=== PATIENT | female | born 1995 | race Caucasian/White ===

== ENCOUNTER → 2018-11-28 11:45 | Outpatient (CLI) | payer BC ==
[2016-02-14 05:58] VITALS: BMI 29.8
[~2018-11-28 11:45] MED LIST: IBUPROFEN600 MG PO; PERCOCET 5-3251 TAB PO; PRENAVITE1 TAB PO
[2018-11-28 12:38] LABS: APPEARANCE SL CLDY (CLEAR); BILIRUBIN NEGATIVE (NEGATIVE); COLOR YELLOW (YELLOW); GLUCOSE 100 mg/dL (NEGATIVE); KETONE NEGATIVE (NEGATIVE); NITRITE NEGATIVE (NEGATIVE); PROTEIN NEGATIVE (NEGATIVE); UROBILINOGEN NORMAL (NORMAL)
[2018-11-28 12:39] LABS: BACTERIA MODERATE /hpf (NONE SEEN); EPITHELIAL CELLS 0-5 /hpf (0-5); MUCUS <1+ /lpf (NONE SEEN); WHITE CELLS - URINE 0-5 /hpf (0-5)
== END | disposition home or self-care (01) ==
LOC: D.LDO 11:45
PROVIDERS: ATTEND Obstetrics & Gynecology
DX: O36.8930 Maternal care for other specified fetal problems, third trimester, not applicable or unspecified (principal); Z3A.30 30 weeks gestation of pregnancy

== ENCOUNTER 2019-01-20 20:15 | Inpatient (IN) | payer BC ==
[~2019-01-20] VITALS: Ht 157.5 cm; Wt 74.5 kg
[2019-01-20 21:46] VITALS: BP 121/82; Ht 157.5 cm; Wt 74.5 kg
[2019-01-20 22:19] LABS: HEMATOCRIT 26.8 % (36.0-48.0); HEMOGLOBIN 8.8 g/dL (12-16); MCH 27.1 pg (26.0-34.0); MCHC 32.8 g/dL (31.0-37.0); MCV 82.5 fL (80.0-100.0); MEAN PLATELET VOLUME 11.1 fL (7.4-10.4); RBC 3.25 10x6/uL (4.00-5.40); RDW 13.7 % (11.5-14.5); WBC 9.7 10x3/uL (4.8-10.8)
[2019-01-20 22:26] LABS: UDS - AMPHET NEGATIVE QUAL (NEGATIVE); UDS - BARB NEGATIVE QUAL (NEGATIVE); UDS - BENZO NEGATIVE QUAL (NEGATIVE); UDS - COCAINE NEGATIVE QUAL (NEGATIVE); UDS - OPIATE NEGATIVE QUAL (NEGATIVE); UDS - PCP NEGATIVE QUAL (NEGATIVE); UDS - THC NEGATIVE QUAL (NEGATIVE)
[2019-01-21 19:20] VITALS: BP 119/75
--- NOTE | 2019-01-21 19:20 | NUR ---
PT REC'D IN BED AT THIS TIME. DENIES PAIN. PITOCIN INFUSING TO THE RT FOREARM. SITE CLEAR AND PATENT. LUNGS CLEAR. BS+. FUNDUS FIRM AND U\2 WITH SMALL BLEEDINE NOTED AT THIS TIME. PT STILL WITH SOME NUMBNESS TO THE RT LEG. WILL MONITOR. ERIDURAL LINE REMOVED WITH TIP INTACT. VSS. NO ACUTE DISTRESS NOTED AT THIS TIME. SIDERAIL UP FOR SAFETY. CALL LIGHT IN PT REACH. Joyce DUNCAN RN
--- NOTE | 2019-01-21 20:00 | NUR ---
PITOCIN COMPLETED. IRON INFUSION UP AT THIS TIME AT 135 ML/HR TO THE RT FOREARM. Joyce DUNCAN RN
--- NOTE | 2019-01-21 21:00 | NUR ---
PT UP TO VOID AT THIS TIME. WITH FAMILY ASSIST. PT ABLE TO BEAR WEIGHT AT THIS TIME. PT VOIDED WITHOUT DIFFICULTY. PERICARE PROVIDED. PT TO WHEELCHAIR AND TO ROOM 1257. Joyce DUNCAN RN
--- NOTE | 2019-01-21 21:43 | NUR ---
pt medicated for pain of 6 with toradol at this time. will continue to monitor. jhoana norman rn
--- NOTE | 2019-01-21 22:15 | NUR ---
PT STATES PAIN IS A 2 AT THIS TIME. WILL CONTINUE TO MONITOR. Joyce DUNCAN RN
--- NOTE | 2019-01-21 23:00 | NUR ---
IRON INFUSION COMPLETED AT THIS TIME. SALINE LOCK FLUSHED. SITE PATENT. Joyce DUNCAN RN
[2019-01-22 00:15] VITALS: BP 119/71
[2019-01-22 01:16] LABS: BASOPHILS 0 % (0-2); EOSINOPHILS 0.2 % (0-7); HEMOGLOBIN 10.5 g/dL (12-16); IMMATURE GRANULOCYTES 0.3 % (0-5); LYMPHOCYTES 9.1 % (15-50); MCH 26.6 pg (26.0-34.0); MCHC 32.4 g/dL (31.0-37.0); MEAN PLATELET VOLUME 11.3 fL (7.4-10.4); NEUTROPHILS 85.4 % (40-80); RDW 13.9 % (11.5-14.5); WBC 11.5 10x3/uL (4.8-10.8)
[2019-01-22 01:17] LABS: HEMATOCRIT 32.4 % (36.0-48.0); PLATELET COUNT 145 10x3/uL (130-400); RBC 3.95 10x6/uL (4.00-5.40)
--- NOTE | 2019-01-22 02:45 | NUR ---
PT MEDICATED FOR PAIN OF 6 WITH TYLENOL 1000 MG PO. WILL CONTINUE TO MONITOR PAIN. Joyce DUNCAN RN
--- NOTE | 2019-01-22 03:45 | NUR ---
PT STATES PAIN IS A 3 AT THIS TIME. AWAKE AND ALERT AT THIS TIME. NO DISTRESS NOTED. Joyce DUNCAN RN
--- NOTE | 2019-01-22 05:55 | NUR ---
PT REC'D IN BED WATCHING TV. DENIES PAIN OR NEEDS AT THIS TIME. Joyce DUNCAN RN
[2019-01-22 07:12] LABS: RAPID PLASMA REAGIN Non Reactive (Non Reactive)
[2019-01-22 08:30] VITALS: BP 114/74
--- NOTE | 2019-01-22 08:30 | NUR ---
THIS RN TO ROOM FOR SHIFT ASSESSMENT. PT SITTING UP IN BED. PT C/O MILD PAIN, RATES 2/10 AT THIS TIME, UTERINE CRAMPING FOLLOWING . PT DENIES CONCERNS WITH HEAVY BLEEDING. PT INSTRUCTED ON S/S TO REPORT REGARDING LOCHIA FLOW/CLOTS. UNDERSTANDING VERBALIZED. SHIFT ASSESSMENT DONE, VSS, SEE FLOWSHEET FOR DOC. POC DISCUSSED INCLUDING POSSIBLE DISCHARGE TO HOME THIS EVENING. PT AGREES SHE WOULD LIKE TO GO HOME TODAY IF POSSIBLE. AM LABS REVIEWED. PT RIGHT FOREARM PIV REMOVED WITHOUT INCIDENT NO LONGER INDICATED. CATH INTACT. PRESSURE HELD AND BANDAID APPLIED. PT DENIES ANY NEEDS AT THIS TIME. SRUx2, CL IN REACH. WILL CONT TO MONITOR. SIG OTHER AT BEDSIDE.
--- NOTE | 2019-01-22 09:30 | NUR ---
THIS RN TO ROOM FOR PT CHECK. PT SITTING UP IN BED, INFANT. PT DENIES ANY NEEDS AT THIS TIME. SIG OTHER AT BEDSIDE. SRUx2, CL IN REACH. WILL CONT TO MONITOR.
[2019-01-22] MEDS ORDERED: TORADOL10 MG PO (10:11)
--- NOTE | 2019-01-22 10:51 | NUR ---
THIS RN TO ROOM FOR PT CHECK. PT SITTING UP IN BED, VISITING WITH VISITORS. PT SMILING, DENIES ANY NEEDS AT THIS TIME. INSTRUCTED TO CALL FOR ANY NEEDS. JACLYN Padgett IN REACH. WILL CONT TO MONITOR.
--- NOTE | 2019-01-22 11:55 | NUR ---
THIS RN TO ROOM FOR PT CHECK. PT SITTING UP IN BED, VISITING WITH FAMILY. PT C/O CRAMPING PAIN RATED 6/10, REQUESTING PAIN MEDICATION. WILL ADMIN PRN TORADOL ORDERED FOR PAIN.
--- NOTE | 2019-01-22 12:05 | NUR ---
PT ADMIN TORADOL ORDERED, SEE EMAR FOR DOC. FRESH ICE WATER PROVIDED. PT DENIES FURTHER NEEDS AT THIS TIME. SRUx2, CL IN REACH.
--- NOTE | 2019-01-22 13:06 | NUR ---
THIS RN TO ROOM FOR PT CHECK AND PAIN REASSESSMENT. PT SITTING UP IN BED, . PT REPORTS VERBALIZES RELIEF FROM PAIN, DENIES ANY NEEDS AT THIS TIME. FAMILY MEMBER AT BEDSIDE. SRUx2, CL IN REACH. WILL CONT TO MONITOR.
--- NOTE | 2019-01-22 16:45 | NUR ---
THIS RN TO ROOM FOR PT CHECK. PT SITTING UP IN BED, EATING DINNER AND VISITING WITH FAMILY. PT DENIES PAIN OR ANY NEEDS. SRUx2, CL IN REACH. WILL CONT TO MONITOR.
--- NOTE | 2019-01-22 17:50 | NUR ---
MOTHER UP AND ABOUT IN ROOM. NO DISTRESS NOTED OR REPORTED. MULTIPLE VISITORS AT BEDSIDE. MOTHER AWAITING TEST RESULTS BEFORE DISCHARGE. NO COMPLAINTS VOICED.
--- NOTE | 2019-01-22 20:00 | NUR ---
DISCHARGE INSTRUCTION REVIEWED AND SIGNED. PRESCRIPTION GIVEN. FOLLOW UP APPOINTMENT TIME AND DADTE REVIEWED. ENC MOM TO PACK UP BELONGINGS AND BUCKE BABY IN CAR SEAT AND WE WILL ASSIST HER OUT IN A WHEELCHAIR. DAD REQUESTED BELONGINGS BAG. BAG GIVEN.
--- NOTE | 2019-01-22 20:28 | NUR ---
OUT TO CAR VIA WHEELCHAIR. ASSISTED IN VEHICLE. BABY IN CARSEAT AND BUCKLED IN THE PROPER POSITION. MOM AND DAD DENY FURTHER NEEDS.
== END 2019-01-22 20:28 | disposition home or self-care (01) | DRG 807 ==
LOC: D.LD 20:15
PROVIDERS: ADMIT Obstetrics & Gynecology; ATTEND Obstetrics & Gynecology
PROC: 10E0XZZ Delivery of Products of Conception, External Approach (ICD-10-PCS; principal; 2019-01-21)
PROC: 3E033VJ Introduction of Other Hormone into Peripheral Vein, Percutaneous Approach (ICD-10-PCS; 2019-01-21)
DX: O80 Encounter for full-term uncomplicated delivery (principal); Z37.0 Single live birth; Z3A.39 39 weeks gestation of pregnancy